=== PATIENT | male | born 1975 | race African-American/Black ===

== ENCOUNTER 2017-03-20 12:20 | Emergency (ER) | payer OTHER ==
[~2017-03-20] VITALS: Ht 177.8 cm; Wt 137.0 kg
[~2017-03-20 12:20] MED LIST: 1-ME1LIQ PO; CLIN1CAP5 PO; IBUP800T23 PO; LISI-360 PO; METF500 PO
[2017-03-20 12:22] VITALS: BP 139/92; PULSE 92; RESP 20; TEMP 98.7; O2SAT 97
--- NOTE | 2017-03-20 12:34 | PD ---
Physical Exam Date Seen by Provider: Mar 20, 2017 Time Seen by Provider: 12:32 Narrative 41 yo male here for evaluation of back pain. having pain for a month but not getting better at all. Doesn't know if its lungs or kidneys. No injuries. Has a rash on the buttocks as well going on for a year off/on. History of DM. Vitals are stable in triage. Awaiting bed placement. Data Data Last Documented VS Vital Signs Date Time Temp Pulse Resp B/P (MAP) Pulse Ox O2 Delivery O2 Flow Rate FiO2 03/20/17 12:22 98.7 92 20 139/92 (108) [address] [facility] Medical Record Reviewed: Yes Supervised Visit with TD: No Kurt Washington Mar 20, 2017 12:34
--- NOTE | 2017-03-20 13:06 | PD ---
HPI Chief Complaint: Back/ Neck Pain or Injury Time Seen by Provider: 13:06 Travel History International Travel<30 days: No Contact w/Intl Traveler<30days: No Traveled to known affect area: No History of Present Illness HPI 41-year-old male presents to emergency Department with multiple complaints. His first complaint is low back pain 2 months. Denies new or recent injury. 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 Denies encopresis, incontinence, saddle anesthesias. Denies IV drug use, cancer. Denies paresthesias, loss of sensation, decreased range of motion, decreased strength to bilateral lower extremities. Denies change in urine or stool. Denies fever , vomiting, abdominal pain. Denies difficulty with ambulation. Pain is worse with movement. His second complaint is boils to his buttocks 3 years. He says they come and go. When he has now for has been there for about 2-3 days. He says it started drained drainage. His third complaint is shortness of breath 3 days. Reports history of asthma. Reports tobacco use. Says when he takes a deep breath it hurts his ribs. Denies recent illness including cough, nasal congestion, sore throat, ear pain. Reports wheezing. Denies chest pain or chest tightness. Does not have an inhaler. Has not taken any medications or tried any she was to alleviate any of his symptoms. Symptoms are moderate in severity. No known allergies. Has no other medical complaints. No other modifying factors or associated signs and symptoms. PFSH Past Medical History Cancer: No Cardiovascular Problems: No Diabetes: Yes Endocrine: Yes Genitourinary: No Hepatitis: No Hiatal Hernia: No Immune Disorder: No Musculoskeletal: No Neurologic: No Psychiatric: No Reproductive: No Respiratory: Yes (ASTHMA) Thyroid Disease: No Past Surgical History AICD: No Joint Replacement: No Pacemaker: No Social History Tobacco Use: Yes Allergies-Medications (Allergen,Severity, Reaction): Coded Allergies: No Known Allergies (Unverified , 03/20/17) Reported Meds & Prescriptions Reported Meds & Active Scripts Active Robaxin (Methocarbamol) 500 Mg Tab 500 Mg PO QID PRN Ibuprofen 800 Mg Tab 800 Mg PO Q6HR PRN Bactrim DS (Sulfamethoxazole-Trimethoprim) 800-160 Mg Tab 1 Tab PO BID 10 Days Keflex (Cephalexin) 500 Mg Cap 500 Mg PO Q6H 10 Days Review of Systems Except as stated in HPI: all other systems reviewed are Neg Physical Exam Narrative GENERAL: Well-nourished, well-developed male patient, in no acute distress; afebrile, nontoxic-appearing SKIN: There is an indurated area to the left upper buttocks which measures about 1 cm in diameter. It is nonfluctuant and there is pointing and a minimal amount of drainage. There is no zone of inflammation around it and no lymphangitis. HEAD: Atraumatic. Normocephalic. EYES: Pupils equal and round. No scleral icterus. No injection or drainage. ENT: Mucosa pink and moist. Airway patent. NECK: Trachea midline. CARDIOVASCULAR: Regular rate and rhythm. No murmur appreciated. RESPIRATORY: No accessory muscle use. Breath sounds clear and equal bilaterally with decreased lung sounds in bilateral bases. No retractions or tachypnea. No audible wheezing. GASTROINTESTINAL: Rounded. MUSCULOSKELETAL: Bilateral lower extremities supple and non-tense with 2+ pedal pulses and sensory intact; with full range of motion and 5/5 strength. 2 + DTRs bilaterally. Active dorsiflexion and extension of bilateral feet. Bilateral straight leg raise is negative for low back pain. Ambulatory in room with normal gait. Sitting up in bed at 90. No obvious deformities. No clubbing. No cyanosis. No edema. BACK: No midline point tenderness on palpation of the lumbar spine. Tenderness on palpation of bilateral lumbar paraspinal musculature area. No obvious deformities. NEUROLOGICAL: Awake and alert. Oriented 3. No obvious cranial nerve deficits. Motor grossly within normal limits. Normal speech. Moves all extremities. 5/5 strength to all extremities. Sensory intact. PSYCHIATRIC: Appropriate mood and affect; insight and judgment normal. Data Data Last Documented VS Vital Signs Date Time Temp Pulse Resp B/P (MAP) Pulse Ox O2 Delivery O2 Flow Rate FiO2 03/20/17 12:22 98.7 92 20 139/92 (108) 97 Room Air Orders Orders Albuterol Neb (Albuterol Neb) (03/20/17 13:15) Ibuprofen (Motrin) (03/20/17 13:15) Methocarbamol (Robaxin) (03/20/17 13:15) Chest, Pa & Lat (03/20/17 13:06) [facility] Medical Decision Making Medical Screen Exam Complete: Yes Emergency Medical Condition: Yes Medical Record Reviewed: Yes Differential Diagnosis Abscess, low back pain, asthma exacerbation, shortness of breath Narrative Course 41-year-old male physical exam consistent with low back pain, abscess of the left buttocks. Is also complaining of shortness of breath and has history of asthma. Reports tobacco use. He is in no acute distress and his oxygen saturation is 97% on room air. No retractions or tachypnea. Lungs are clear and equal throughout with decreased lung sounds in bilateral bases. The abscess is nonfluctuant and has already drained on its own. I will prescribe Keflex and Bactrim for the abscess. Patient has had low back pain for 2 months. Denies injury. He denies encopresis, incontinence, saddle anesthesias. Denies IV drug use or cancer. He has no midline tenderness on palpation of the lumbar spine. Ambulatory with normal gait. Neuro exam is unremarkable. Robaxin and ibuprofen administered in the ER. Robaxin and ibuprofen will be prescribed for home. Chest x-ray and albuterol nebulizer ordered. 1414: Chest x-ray with no acute findings. On reexamination the patient reports that he feels much better. He denies feeling short of breath at this time. Lung sounds are clear and equal throughout with improved lung sounds in bilateral bases. Pro-air inhaler prescribed for home. I offered the patient an oral steroid and he declined. Instructed patient to follow up with primary care provider. Patient verbalizes understanding and agreement with treatment plan. Patient is medically cleared and stable for discharge. Discussed reasons to return to the emergency department. Patient agrees with treatment plan. The patients vital signs are stable and the patient is stable for outpatient follow-up and treatment. Patient discharged home, stable and in no acute distress. Diagnosis Primary Impression: Low back pain Qualified Codes: M54.5 - Low back pain Additional Impressions: Abscess of buttock, left Asthma exacerbation Referrals: [facility] Primary Care Physician Patient Instructions: Abscess (ED), Abscess Follow-up (ED), Acute Low Back Pain (ED), Asthma (ED), General Instructions, Low Back Strain (ED) Departure Forms: Tests/Procedures, Work Release Enter return to work date: Mar 21, 2017 Additional Instructions: Tylenol or ibuprofen as directed and as needed for pain Robaxin as prescribed and as needed for muscle spasms Heating pad and/or ice to affected area to reduce pain Avoid aggravating activities; increase activity as tolerated Follow-up with primary care provider Return to emergency department immediately with worsening of symptoms Use albuterol inhaler as needed for shortness of breath and/or wheezing Take oral steroids as prescribed and complete full course Avoid asthma triggers such as smoking cigarettes, second hand smoke, dust, known allergens Follow-up with primary care provider Return to emergency department immediately with worsening of symptoms Complete full course of antibiotics Warm compresses to the affected area Keep area clean and dry Ibuprofen or Tylenol as directed and as needed for pain and inflammation Follow-up with primary care provider Return to emergency department immediately with worsening of symptoms Med/Other Pt SpecificInfo: Prescription(s) given Scripts Albuterol 8.5 GM Inh (Proair Hfa 8.5 GM Inh) 90 Mcg/Act Aer 2 PUFF INH Q4-6H Y for SOB/WHEEZING, #1 INHALER 0 Refills 108 mcg/actuation Prov: Fariha Ozuna 03/20/17 Methocarbamol (Robaxin) 500 Mg Tab 500 MG PO QID Y for MUSCLE SPASM, #30 TAB 0 Refills Prov: Fariha Ozuna 03/20/17 Ibuprofen (Ibuprofen) 800 Mg Tab 800 MG PO Q6HR Y for PAIN, #30 TAB 0 Refills Prov: Fariha Ozuna 03/20/17 Sulfamethoxazole-Trimethoprim (Bactrim DS) 800-160 Mg Tab 1 TAB PO BID for Infection for 10 Days, TAB 0 Refills Prov: Fariha Ozuna 03/20/17 Cephalexin (Keflex) 500 Mg Cap 500 MG PO Q6H for Infection for 10 Days, CAP 0 Refills Prov: Fariha Ozuna 03/20/17 Disposition: 01 DISCHARGE HOME Condition: Stable Fariha Ozuna Mar 20, 2017 13:06
[2017-03-20] MEDS ORDERED: BACT800T5 PO (13:10)
[2017-03-20] MEDS ORDERED: IBUP800T23 PO (13:10)
[2017-03-20] MEDS ORDERED: ROBA500T PO (13:10)
[2017-03-20] MEDS ORDERED: CEPH-460 PO (13:10)
[2017-03-20] MEDS ORDERED: IBUPROFEN 800 MG TAB PO ONE (13:15)
[2017-03-20] MEDS ORDERED: RESP: ALBUTEROL 2.5 MG/3 ML NEB (SCH) INH ONE (13:15)
[2017-03-20] MEDS ORDERED: METHOCARBAMOL 500 MG TAB PO ONE (13:15)
--- NOTE | 2017-03-20 13:53 | RADRPT ---
EXAM DATE/TIME: 03/20/2017 13:31 [place] COMPARISON: No previous studies available for comparison. INDICATIONS : Shortness of breath. MEDICAL HISTORY : Diabetes mellitus type II. Asthma SURGICAL HISTORY : None. ENCOUNTER: Initial ACUITY: 3 days PAIN SCORE: 0/10 LOCATION: Bilateral chest FINDINGS: PA and lateral views of the chest demonstrate the lungs to be symmetrically aerated without evidence of mass, infiltrate or effusion. The cardiomediastinal contours are unremarkable. Osseous structure s are intact. CONCLUSION: 1. No acute cardiopulmonary disease. Arnaldo Alexandre MD on March 20, 2017 at 13:51 Board Certified Radiologist. This report was verified electronically.
[2017-03-20] MEDS ORDERED: ALBUAER3 INH (14:19)
== END 2017-03-20 14:28 | disposition home or self-care (01) ==
LOC: NEPK 12:20
DX: M54.5 Low back pain (principal); L02.31 Cutaneous abscess of buttock; J45.901 Unspecified asthma with (acute) exacerbation; Z72.0 Tobacco use
CPT/HCPCS: 71020; 94664; 99284; J7613